=== PATIENT | female | born 1970 | race African-American/Black ===

== ENCOUNTER 2025-02-15 21:48 | Emergency (ER) | payer OTHER ==
[~2025-02-15] VITALS: Ht 175.3 cm; Wt 105.0 kg
[2025-02-15 21:52] VITALS: O2SAT 100
[2025-02-15 23:09] LABS: BASOPHILS % 2.3 % (0.0-2.0); EOSINOPHILS % 4.1 % (0.0-5.0); HEMATOCRIT. 42.1 % (36.0-48.0); HEMOGLOBIN. 13.5 g/dL (12.0-16.0); LYMPHOCYTES % 42.5 % (20.0-50.0); MEAN PLATELET VOLUME 9.4 fl (7.4-10.4); MONOCYTES % 9.8 % (2.0-8.0); NEUTROPHILS % 41.3 % (40.0-76.0); PLATELET 218 x1000/uL (130-400); RED BLOOD CELL COUNT 5.10 mill/uL (4.2-5.4); RED CELL DISTRIBUTION WIDTH 17.2 % (11.6-14.6)
[2025-02-15] MEDS: CLONIDINE 0.1MG TABLET PO ONE (23:09)
[2025-02-15 23:22] LABS: INR 0.9
[2025-02-15 23:23] LABS: CREATININE 0.9 mg/dL (0.6-1.0); UREA NITROGEN BLOOD 11 mg/dL (9-23)
[2025-02-15 23:24] LABS: TROPONIN I HIGH SENSITIVITY < 4 ng/L (3.0-34)
[2025-02-16] MEDS: ACETAMINOPHEN 325MG TABLET PO ONE (01:47)
[2025-02-16 03:10] VITALS: BP 140/90; PULSE 66; RESP 14; TEMP 36.5; O2SAT 100
== END 2025-02-16 03:11 | disposition home or self-care (01) ==
LOC: ER 21:58
DX: R51.9 Headache, unspecified (principal); I10 Essential (primary) hypertension; R06.02 Shortness of breath; Z79.899 Other long term (current) drug therapy; Z98.890 Other specified postprocedural states
CPT/HCPCS: 36415; 71045; 80048; 83880; 84484; 85025; 93005; 99285